=== PATIENT | female | born 1965 | race Hispanic/Latino ===

== ENCOUNTER 2020-08-02 11:34 | Outpatient (CLI) | payer OTHER | END 2020-08-02 11:35 | disposition home or self-care (01) | LOC: MADEKG 11:34 | PROVIDERS: ATTEND Family Medicine | DX: R00.1 Bradycardia, unspecified (principal) | CPT/HCPCS: 93005; 93010 ==

== ENCOUNTER 2022-03-13 07:51 | Emergency (ER) | payer SELFPAY | END 2022-03-13 08:30 | disposition home or self-care (01) | LOC: MADERS 07:51 | DX: T78.1XXA Other adverse food reactions, not elsewhere classified, initial encounter (principal); R21 Rash and other nonspecific skin eruption; E11.9 Type 2 diabetes mellitus without complications | CPT/HCPCS: 99283 ==